=== PATIENT | female | born 1945 | race Caucasian/White ===

== ENCOUNTER 2019-06-21 12:17 | Emergency (ER) | payer MEDICARE, SELFPAY ==
[2019-06-21] VITALS (13 sets, daily range): BP systolic 140–168; BP diastolic 53–75; PULSE 59–118; RESP 15–17; TEMP 36.3; O2SAT 96–100
--- NOTE | 2019-06-21 12:34 | DI.RAD.S_ITS ---
PROCEDURE: XR CHEST 1V INDICATIONS: chest pain TECHNIQUE: One view of the chest was acquired. COMPARISON: None. FINDINGS: Surgical changes and devices: The patient is status post median sternotomy and valvular replacement. Lungs and pleura: Lungs are clear. No pleural effusions or pneumothorax. Mediastinum: Mediastinal contours appear normal. Heart size is normal. Bones and chest wall: No suspicious bony lesions. Overlying soft tissues appear unremarkable. IMPRESSION: No acute cardiopulmonary findings. Dictated by: Nadira Chatman M.D. on 06/21/2019 at 12:18 Approved by: Nadiar Chatman M.D. on 06/21/2019 at 12:18
--- NOTE | 2019-06-21 12:34 | DI.RAD.S_ITS ---
PROCEDURE: XR HIP W PEL IF DONE LT 2V INDICATIONS: pain no injury TECHNIQUE: AP pelvis with lateral view(s) of the left hip(s). COMPARISON: None. FINDINGS: Bones: Patient is status post bilateral total hip arthroplasty. Cerclage wires are present at the left proximal femur. Fragmented bone is visualized within the superior left femoral diaphysis which may represent old non-unified fractures. A bony lucency is present around the lateral left proximal femoral fixation plate Soft tissues: The visualized bowel gas pattern is normal. No suspicious soft tissue calcifications. IMPRESSION: 1. Extensive postoperative change. 2. Fragmented bone visualized at the superior left femoral diaphysis. No prior studies are available to determine the acuity of these findings; however in the absence of trauma, these findings may represent old non-unified fractures. However, acute fracture cannot be excluded. Please correlate clinically. 3. Lucency around the lateral left proximal femoral plate which may represent hardware loosening. If further characterization for hardware loosening is warranted, a nuclear medicine bone scan is recommended. Dictated by: Nadira Chatman M.D. on 06/21/2019 at 12:18 Approved by: Nadira Chatman M.D. on 06/21/2019 at 12:21
[2019-06-21 12:46] LABS: Add Manual Diff / Slide Review NO; Basophils Absolute Auto 0 /uL (0-100); Basophils Percent Auto 0.7 % (0-2); Eosinophils Absolute Auto 300 /uL (0-450); Eosinophils Percent Auto 4.6 % (2-4); Hematocrit 39.1 % (36-46); Hemoglobin 13.1 g/dL (12.0-16.0); Lymphocytes Absolute Auto 1300 /uL (1100-4500); Lymphocytes Percent Auto 19.5 % (25-40); Mean Corpuscular HGB Conc 33.4 % (30-36); Mean Corpuscular Hemoglobin 30.1 PG (26-34); Mean Corpuscular Volume 90.1 fL (80-100); Monocytes Absolute Auto 800 /uL (0-900); Monocytes Percent Auto 11.3 % (3-14); Neutrophils Absolute Auto 4300 /uL (1500-7000); Neutrophils Percent Auto 63.9 % (50-75); Platelet Count 188 X10^3/uL (150-400); Red Blood Cell Count 4.34 X10^6/uL (4.0-5.2); Red Cell Distribution Width 14.5 % (11.6-14.8); White Blood Cell Count 6.8 X10^3/uL (4.5-11.0)
[2019-06-21 12:50] LABS: Alanine Aminotransferase 24 IU/L (9-52); Albumin 4.2 g/dL (3.5-5.0); Albumin Globulin Ratio 1.6 (1.0-2.8); Alkaline Phosphatase 81 U/L (38-126); Aspartate Aminotransferase 30 IU/L (14-36); BUN Creatinine Ratio 23.6 (6-22); Bilirubin Total 0.5 mg/dL (0.2-1.3); Blood Urea Nitrogen 26 mg/dL (7-17); Calcium 9.6 mg/dL (8.4-10.2); Carbon Dioxide 30 mmol/L (22-32); Chloride 105 mmol/L (98-107); Creatine Kinase 70 U/L (30-135); Estimated Glomerular Filt Rate 48.6 mL/min (>60); Globulin 2.6 g/dL (1.7-4.1); Glucose 79 mg/dL (80-110); HEMOLYSIS < 15 (0-50); Lipase 68 U/L (23-300); Potassium 4.3 mmol/L (3.4-5.1); Sodium 142 mmol/L (137-145); Total Protein 6.8 g/dL (6.3-8.2)
[2019-06-21 13:02] LABS: Troponin I < 0.012 ng/mL (0.01-0.034)
[2019-06-21 13:08] LABS: B Type Natriuretic Peptide 416 (<100)
--- NOTE | 2019-06-21 13:23 | ED.CHESTPAIN ---
HPI - Chest Pain General Chief Complaint: Chest Pain Stated Complaint: Chest pains and pain in lft arm, pain in lft hip Time Seen by Provider: 06/21/19 12:27 Source: patient Mode of arrival: ambulatory Limitations: no limitations History of Present Illness HPI narrative: Patient is a 74-year-old female who has valvular heart disease but no known coronary artery disease presenting with a left arm achiness radiating up to her neck. It has been ongoing today progressively getting worse. She does have some shortness of breath with exertion but she says that is not too bad. She has no heart palpitations but is noted to have frequent PVCs. She says she frequently does have PVCs. She denies any nausea or vomiting no diaphoresis. She also is having left hip pain. She has had multiple surgeries on her left hip she did fall a few days ago and now her pain has become constant. Related Data Allergies Allergy/AdvReac Type Severity Reaction Status Date / Time omeprazole [From Prilosec] AdvReac Verified 06/21/19 12:47 Review of Systems Review of Systems ROS Unobtainable: All systems reviewed & are unremarkable except as noted in HPI and below Constitutional Denies chills, Denies fever(s), Denies lethargy and Denies weakness Eyes Denies change in vision, Denies eye discharge, Denies irritation and Denies loss of vision ENT Ears, Nose, Mouth, and Throat: Denies change in voice, Denies neck pain and Denies sore throat Cardiovascular Reports chest pain, Denies dyspnea and Denies dyspnea on exertion Respiratory Denies cough, Denies dyspnea, Denies dyspnea on exertion and Denies wheezing Gastrointestinal Gastrointestinal: Denies abdominal pain, Denies change in bowel habits, Denies diarrhea, Denies nausea and Denies vomiting Genitourinary Denies hematuria, Denies flank pain, Denies urinary incontinence and Denies urinary urgency Musculoskeletal Reports as per HPI and Denies neck pain Comments: left hip pain Integumentary/Breasts Denies pruritus, Denies erythema, Denies rash and Denies wounds Neurologic Denies loss of vision and Denies weakness Allergic/Immunologic Denies wheezing [facility] Medical History (Updated 06/21/19 @ 18:12 by Janel Shen DO) Aortic valve disease (Acute) Comment: from out of town Exam Initial Vital Signs Initial Vital Signs: Vital Signs Pulse Rate 82 06/21/19 12:30 Respiratory Rate 17 06/21/19 12:30 Blood Pressure 140/64 06/21/19 12:30 Pulse Oximetry 97 06/21/19 12:30 GENERAL: Well-appearing, well-nourished and in no acute distress. HEENT: Head atraumatic,EOMI, pupils reactive, face symmetric, moist mucous membranes CARDIOVASCULAR: Regular rate and rhythm without murmurs, rubs or gallops. RESPIRATORY: Breath sounds equal bilaterally, no wheezes rales or rhonchi. ABDOMEN: Soft, nontender. Normoactive bowel sounds all 4 quadrants. No guarding or rebound. EXTREMITIES: Normal range of motion, no clubbing or edema. Neurovascularly intact NEUROLOGICAL: Alert and oriented x4.Normal gait and speech. Cranial nerves II through XII grossly intact. SKIN: Warm, dry, no laceration, no petechiae, no rashes or lesions. Scores HEART Score Heart Score history: Highly Suspicious Heart Score EKG: Normal Heart Score Age: > or = 65 years old Heart Score risk factors: No known risk factors Heart Score troponin: < or = to normal limit Heart Score Total: 4 Course Orders Ordered: ED Orders 06/21/19 12:30 B Type Natriuretic Peptide Stat Complete Blood Count AUTO DIFF Stat Comprehensive Metabolic Panel Stat Lipase Stat Troponin & CK Cardiac Panel Stat 06/21/19 12:34 XR chest 1V Stat XR hip w pel if done LT 2V Stat 06/21/19 12:49 EKG-12 Lead Routine EKG-12 Lead Stat 06/21/19 15:12 Urine Microscopic Stat 06/21/19 15:25 Troponin I Stat 06/21/19 16:39 EKG-12 Lead Routine Sodium Chloride (Normal Saline 0.9%) 1,000 mls @ 150 mls/hr IV CONT MATT Last Infusion: 06/21/19 18:04 Dose: 0 mls/hr Admin: 06/21/19 13:27 Dose: 150 mls/hr Nitroglycerin (Nitrostat) 0.4 mg SL [id number] PRN PRN Reason: Chest Pain Last Admin: 06/21/19 13:27 Dose: 0.4 mg Discontinued Medications Aspirin (Aspirin Chew) 324 mg PO NOW ONE Stop: 06/21/19 12:35 Last Admin: 06/21/19 13:28 Dose: 324 mg Hydromorphone HCl (Dilaudid) 0.5 mg IV NOW ONE Stop: 06/21/19 16:07 Last Admin: 06/21/19 16:35 Dose: 0.5 mg Metoprolol Tartrate (Lopressor) 5 mg IV NOW ONE Stop: 06/21/19 13:49 Last Admin: 06/21/19 13:57 Dose: 5 mg Vital Signs - 8 hr 06/21/19 12:30 06/21/19 12:40 06/21/19 13:15 Temperature 97.3 F L Pulse Rate 82 82 76 Respiratory Rate 17 17 16 Blood Pressure 140/64 Blood Pressure [Right Arm] 140/64 150/61 H Pulse Oximetry 97 97 97 06/21/19 13:27 06/21/19 13:30 06/21/19 13:34 Temperature Pulse Rate 62 80 66 Respiratory Rate 16 Blood Pressure 150/61 H 158/53 H Blood Pressure [Right Arm] 158/53 H Pulse Oximetry 98 06/21/19 14:28 06/21/19 15:27 06/21/19 15:30 Temperature Pulse Rate 59 L 63 65 Respiratory Rate 15 16 Blood Pressure Blood Pressure [Right Arm] 154/59 H 149/59 H 159/55 H Pulse Oximetry 97 99 100 06/21/19 16:00 06/21/19 16:35 06/21/19 17:00 Temperature Pulse Rate 70 118 H 117 H Respiratory Rate 16 16 Blood Pressure Blood Pressure [Right Arm] 153/75 H 168/75 H Pulse Oximetry 99 96 06/21/19 17:36 Temperature Pulse Rate 65 Respiratory Rate Blood Pressure Blood Pressure [Right Arm] Pulse Oximetry 100 MDM - Chest Pain Lab Data Attestation: I reviewed the patient's lab results. Result diagrams: 06/21/19 12:30 06/21/19 12:30 Lab Results 06/21/19 06/21/19 06/21/19 Range/Units 12:30 12:30 15:12 WBC 6.8 (4.5-11.0) X10^3/uL RBC 4.34 (4.0-5.2) X10^6/uL Hgb 13.1 (12.0-16.0) g/dL Hct 39.1 (36-46) % MCV 90.1 (80-100) fL MCH 30.1 (26-34) PG MCHC 33.4 (30-36) % RDW 14.5 (11.6-14.8) % Plt Count 188 (150-400) X10^3/uL Neut % (Auto) 63.9 (50-75) % Lymph % (Auto) 19.5 L (25-40) % [place] % (Auto) 11.3 (3-14) % Eos % (Auto) 4.6 H (2-4) % Baso % (Auto) 0.7 (0-2) % Neut # (Auto) 4300 (0788-5171) /uL Lymph # (Auto) 1300 (2156-7333) /uL [place] # (Auto) 800 (0-900) /uL Eos # (Auto) 300 (0-450) /uL Baso # (Auto) 0 (0-100) /uL Sodium 142 (137-145) mmol/L Potassium 4.3 (3.4-5.1) mmol/L Chloride 105 (98-107) mmol/L Carbon Dioxide 30 (22-32) mmol/L BUN 26 H (7-17) mg/dL Creatinine 1.10 H (0.52-1.04) mg/dL Estimated GFR 48.6 L (>60) mL/min BUN/Creatinine Ratio 23.6 H (6-22) Glucose 79 L (80-110) mg/dL Calcium 9.6 (8.4-10.2) mg/dL Total Bilirubin 0.5 (0.2-1.3) mg/dL AST 30 (14-36) IU/L ALT 24 (9-52) IU/L Alkaline Phosphatase 81 (38-126) U/L Total Creatine Kinase 70 (30-135) U/L CK-MB (CK-2) TNP CK-MB (CK-2) Rel Index TNP Troponin I < 0.012 (0.01-0.034) ng/mL B-Natriuretic Peptide 416 H (<100) Total Protein 6.8 (6.3-8.2) g/dL Albumin 4.2 (3.5-5.0) g/dL Globulin 2.6 (1.7-4.1) g/dL Albumin/Globulin Ratio 1.6 (1.0-2.8) Lipase 68 (23-300) U/L Urine RBC None seen (0-5/HPF) Urine WBC 0-1/hpf (0-5/HPF) Ur Squamous Epith Cells 0-1 /hpf (0-5/HPF) Urine Bacteria None seen (None) Ur Culture Indicated? Cult not indicated 06/21/19 Range/Units 15:25 WBC (4.5-11.0) X10^3/uL RBC (4.0-5.2) X10^6/uL Hgb (12.0-16.0) g/dL Hct (36-46) % MCV (80-100) fL MCH (26-34) PG MCHC (30-36) % RDW (11.6-14.8) % Plt Count (150-400) X10^3/uL Neut % (Auto) (50-75) % Lymph % (Auto) (25-40) % [place] % (Auto) (3-14) % Eos % (Auto) (2-4) % Baso % (Auto) (0-2) % Neut # (Auto) (4685-2032) /uL Lymph # (Auto) (4819-8609) /uL [place] # (Auto) (0-900) /uL Eos # (Auto) (0-450) /uL Baso # (Auto) (0-100) /uL Sodium (137-145) mmol/L Potassium (3.4-5.1) mmol/L Chloride (98-107) mmol/L Carbon Dioxide (22-32) mmol/L BUN (7-17) mg/dL Creatinine (0.52-1.04) mg/dL Estimated GFR (>60) mL/min BUN/Creatinine Ratio (6-22) Glucose (80-110) mg/dL Calcium (8.4-10.2) mg/dL Total Bilirubin (0.2-1.3) mg/dL AST (14-36) IU/L ALT (9-52) IU/L Alkaline Phosphatase (38-126) U/L Total Creatine Kinase (30-135) U/L CK-MB (CK-2) CK-MB (CK-2) Rel Index Troponin I < 0.012 (0.01-0.034) ng/mL B-Natriuretic Peptide (<100) Total Protein (6.3-8.2) g/dL Albumin (3.5-5.0) g/dL Globulin (1.7-4.1) g/dL Albumin/Globulin Ratio (1.0-2.8) Lipase (23-300) U/L Urine RBC (0-5/HPF) Urine WBC (0-5/HPF) Ur Squamous Epith Cells (0-5/HPF) Urine Bacteria (None) Ur Culture Indicated? Urine Dip Bedside Urine Glucose Negative Bedside Urine Bilirubin - Negative Bedside Urine Ketone - Negative Urine Specific [place] 1.020 Bedside Urine Occult Blood - Negative Bedside Urine pH 7.0 Bedside Urine Protein - Negative Bedside Urine Urobilinogen - Negative Bedside Urine Nitrite - Negative Bedside Urine Leukocytes + 70 Esterase Imaging Data Chest x-ray: Radiologist's impression: PROCEDURE: XR CHEST 1V INDICATIONS: chest pain TECHNIQUE: One view of the chest was acquired. COMPARISON: None. FINDINGS: Surgical changes and devices: The patient is status post median sternotomy and valvular replacement. Lungs and pleura: Lungs are clear. No pleural effusions or pneumothorax. Mediastinum: Mediastinal contours appear normal. Heart size is normal. Bones and chest wall: No suspicious bony lesions. Overlying soft tissues appear unremarkable. IMPRESSION: No acute cardiopulmonary findings. Dictated by: Nadira Chatman M.D. on 06/21/2019 at 12:18 left hip: Radiologist's impression: PROCEDURE: XR HIP W PEL IF DONE LT 2V INDICATIONS: pain no injury TECHNIQUE: AP pelvis with lateral view(s) of the left hip(s). COMPARISON: None. FINDINGS: Bones: Patient is status post bilateral total hip arthroplasty. Cerclage wires are present at the left proximal femur. Fragmented bone is visualized within the superior left femoral diaphysis which may represent old non-unified fractures. A bony lucency is present around the lateral left proximal femoral fixation plate Soft tissues: The visualized bowel gas pattern is normal. No suspicious soft tissue calcifications. IMPRESSION: 1. Extensive postoperative change. 2. Fragmented bone visualized at the superior left femoral diaphysis. No prior studies are available to determine the acuity of these findings; however in the absence of trauma, these findings may represent old non-unified fractures. However, acute fracture cannot be excluded. Please correlate clinically. 3. Lucency around the lateral left proximal femoral plate which may represent hardware loosening. If further characterization for hardware loosening is warranted, a nuclear medicine bone scan is recommended. Dictated by: Nadira Chatman M.D. on 06/21/2019 at 12:18 ECG Data Attestation: I personally reviewed and interpreted this ECG as follows: Prior ECG tracings: not available for review Interpretation: EKG 1. Sinus rhythm with PVCs noted rate 81 CO interval [address] changes EKG 2. Sinus rhythm with PVCs rate 71 p.r. interval [address] changes EKG 3. Sinus rhythm with PVCs rate [address] changes MDM Narrative Medical decision making narrative: Patient was given aspirin and nitroglycerin. It did not seem to help her discomfort an aching in her arm. She does not have known coronary artery disease however the aching in her arm radiating up to her neck is concerning. She continues to have intermittent discomfort. She also complained of left hip pain her x-ray did confirm that she may have some loosening hardware. She was worried about that I offered to call our orthopedics here however she would like to be seen by her home [facility]oped[facility] [place] [facility] not capable of a stress test over the weekend. Patient does have 2-troponins however she does need a stress test. Dr. Cooper, hospitalist at [facility] has updated patient on symptoms and test results agrees with transferring for observation and stress test. Discharge Plan Departure Patient Disposition: [facility] Clinical Impression: Chest pain Qualifiers: Chest pain type: unspecified Qualified Code(s): R07.9 - Chest pain, unspecified
[2019-06-21] MEDS: NITROGLYCERIN 0.4 MG SL TAB SL (13:27)
[2019-06-21] MEDS: SODIUM CHLORIDE 0.9% 1,000 ML 150 ML IV (13:27)
[2019-06-21] MEDS: ASPIRIN 81 MG TAB 324 MG PO (13:28)
[2019-06-21] MEDS: METOPROLOL TARTRATE 5 MG/5 ML INJ IV (13:57)
--- NOTE | 2019-06-21 14:45 | PC.NURSE ---
no change in pain following ntg admin
[2019-06-21 15:16] LABS: Bacteria Urine None Seen; RBC Urine None Seen (0-5/HPF)
[2019-06-21 15:45] LABS: Culture Indicated Urine Cult Not Indicated; Squamous Epithelial Cell Urine 0-1 /HPF (0-5/HPF); WBC Urine 0-1/HPF (0-5/HPF)
[2019-06-21 15:52] LABS: Troponin I < 0.012 ng/mL (0.01-0.034)
[2019-06-21] MEDS: HYDROMORPHONE 1 MG INJ 0.5 MG IV (16:35)
--- NOTE | 2019-06-21 18:07 | PC.NURSE ---
[facility]
== END 2019-06-21 18:19 | disposition short-term general hospital (02) ==
PROVIDERS: Emergency Provider Emergency Medicine
DX: R07.9 Chest pain, unspecified (principal); M25.552 Pain in left hip; W19.XXXA Unspecified fall, initial encounter; Z95.2 Presence of prosthetic heart valve
CPT/HCPCS: 36415; 36591; 71045; 73502; 80053; 81003; 81015; 82550; 83690; 83880; 84484; 85025; 93005; 96361; 96374; 96375; 99285; J1170